=== PATIENT | female | born 1990 | race Caucasian/White ===

== ENCOUNTER 2024-02-19 13:50 | Emergency (ER) | payer SELFPAY ==
[2024-02-19 13:56] VITALS: BP 120/87; PULSE 77; RESP 18; TEMP 98; BMI 26.6
[2024-02-19] MEDS ORDERED: ACETAMINOPHEN 500 MG TABLET (FP) ONE (15:25)
[2024-02-19] MEDS: ACETAMINOPHEN 500 MG TABLET (FP) PO ONE (15:26)
[2024-02-19] MEDS ORDERED: ONDANSETRON *ODT* 4 MG TABLET ONE (15:29)
[2024-02-19] MEDS: ONDANSETRON *ODT* 4 MG TABLET SL ONE (15:30)
== END 2024-02-19 17:08 | disposition home or self-care (01) ==
LOC: JERFT 13:50
DX: S43.422A Sprain of left rotator cuff capsule, initial encounter (principal); S00.03XA Contusion of scalp, initial encounter; R11.0 Nausea; W50.0XXA Accidental hit or strike by another person, initial encounter
CPT/HCPCS: 70450-TC; 71046-TC-FY; 99284-25; Q0162